=== PATIENT | female | born 2000 | race Caucasian/White ===

== ENCOUNTER 2020-03-02 12:16 | Emergency (ER) | payer OTHER, MEDICAID, SELFPAY ==
[2020-03-02 12:29] VITALS: BP 141/92; PULSE 90; RESP 22; TEMP 36.8; O2SAT 97; BMI 28.0
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
[2020-03-02] MEDS: ALBUTEROL 2.5 MG/3 ML NEB (ADULT) INH (12:57)
[2020-03-02 13:00] VITALS: BP 126/86; PULSE 76; PULSE 77; RESP 18; RESP 24; O2SAT 97
--- NOTE | 2020-03-02 13:29 | RT ---
Pt instructed MDI use, spacer issued.
--- NOTE | 2020-03-02 13:46 | PC.NURSE ---
Pt reports feeling better after albuterol treatment. States feels able to get more air into lower lungs. Continues to have a wheeze bilateral both inspiratory and expiratory.
[2020-03-02] MEDS: predniSONE 20 MG TABLET 40 MG PO (14:09)
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
== END 2020-03-02 14:37 | disposition home or self-care (01) ==
PROVIDERS: Emergency Provider Nurse Practitioner Family; PCP Physician Assistant
DX: R06.2 Wheezing (principal); T75.89XA Other specified effects of external causes, initial encounter
CPT/HCPCS: 71046; 94150; 94640; 99283; 99284; J7613

== ENCOUNTER 2020-06-30 20:56 | Emergency (ER) | payer OTHER, MEDICAID, SELFPAY ==
[2020-06-30] VITALS (7 sets, daily range): BP systolic 108–140; BP diastolic 75–88; PULSE 85–98; RESP 18–23; TEMP 37.1; O2SAT 95–96; BMI 28.0
--- NOTE | 2020-06-30 21:07 | DI.RAD.S_ITS ---
PROCEDURE: XR CHEST 2V INDICATIONS: shortness of breath with wheezing TECHNIQUE: 2 views of the chest were acquired. COMPARISON: [facility], CR, XR CHEST 1 VIEW, 01/27/2018, 0:46. [facility], CR, XR CHEST 2V, 03/02/2020, 12:35. FINDINGS: Surgical changes and devices: None. Lungs and pleura: There are indistinct airspace opacities within the left lung base. No pleural effusions or pneumothorax. Mediastinum: Mediastinal contours are normal. Heart size is normal. Bones and chest wall: No suspicious bony abnormalities. Soft tissues appear unremarkable. IMPRESSION: 1. Indistinct airspace opacities in the left lung base may represent pneumonia or atelectasis. Dictated by: Broderick Brandt M.D. on 06/30/2020 at 22:08 Approved by: Broderick Brandt M.D. on 06/30/2020 at 22:11
[2020-06-30] MEDS: ALBUTEROL HFA 200 PUFF/18 GM INH (COVID POS/VENT PTS) INH (21:16)
[2020-06-30 21:19] LABS: COVID19 -Nasal RAPID Negative (Negative)
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
[2020-07-01 00:16] VITALS: PULSE 69; RESP 20; O2SAT 96
[2020-07-01] MEDS: ALBUTEROL 2.5 MG/3 ML NEB (ADULT) INH (00:16)
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
[2020-07-01 00:43] VITALS: PULSE 95; O2SAT 98
[2020-07-01 00:45] VITALS: BP 120/57; PULSE 86; O2SAT 96
[2020-07-01] MEDS: ALBUTEROL HFA PREPACK 1 BOX MISC (00:49)
== END 2020-07-01 00:52 | disposition home or self-care (01) ==
PROVIDERS: Emergency Provider Emergency Medicine; PCP Physician Assistant
DX: J45.21 Mild intermittent asthma with (acute) exacerbation (principal)
CPT/HCPCS: 71046; 87635; 94640; 99283; J7613

== ENCOUNTER 2021-04-19 22:31 | Emergency (ER) | payer OTHER, MEDICAID, SELFPAY ==
[2021-04-19 22:38] VITALS: BP 156/101; PULSE 93; RESP 18; TEMP 36.6; O2SAT 99; BMI 30.2
[2021-04-19 23:41] VITALS: BP 132/80; PULSE 61; RESP 20; TEMP 36.7; O2SAT 94
[2021-04-20 00:08] LABS: COVID19 -Nasal RAPID Negative (Negative)
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
[2021-04-20 00:30] VITALS: PULSE 71; RESP 19; O2SAT 96
[2021-04-20] MEDS: ALBUTEROL/IPRATROPIUM 3 ML AMPUL INH (00:30)
[2021-04-20 00:41] VITALS: PULSE 59; RESP 18; O2SAT 98
[2021-04-20] MEDS: ALBUTEROL HFA MDI 60 PUFF/8 GM INHALER INH (00:41)
[2021-04-20 00:47] VITALS: PULSE 78; RESP 20; O2SAT 95
== END 2021-04-20 00:43 | disposition home or self-care (01) ==
PROVIDERS: Emergency Provider Emergency Medicine; PCP Physician Assistant
DX: J45.901 Unspecified asthma with (acute) exacerbation (principal); Z20.822 Contact with and (suspected) exposure to COVID-19
CPT/HCPCS: 87635; 94640; 99283; C9803; A9270

== ENCOUNTER 2021-05-10 21:16 | Emergency (ER) | payer OTHER, MEDICAID, SELFPAY ==
[2021-05-10 21:23] VITALS: BP 154/85; PULSE 67; RESP 15; TEMP 36.8; O2SAT 97; BMI 29.5
[2021-05-10 21:51] LABS: COVID19 -Nasal RAPID Negative (Negative)
[2021-05-11 02:10] VITALS: PULSE 68; RESP 21
[2021-05-11] MEDS: ALBUTEROL 2.5 MG/3 ML NEB (ADULT) 20 MG INH (02:10)
[2021-05-11] MEDS: IPRATROPIUM 0.5 MG/2.5 ML NEB 1.5 MG INH (02:10)
--- NOTE | 2021-05-11 02:16 | ED_ITS ---
HPI - Asthma General Chief Complaint: Asthma Stated Complaint: ASTHMA ATTACK Time Seen by Provider: 05/11/21 02:07 Source: patient Mode of arrival: Ambulatory Limitations: no limitations History of Present Illness HPI Narrative: 20-year-old woman with a history of moderate persistent asthma supposed to be on 2 puffs of 80 mcg beclomethasone and albuterol. She has been out of the steroid inhaler for about a month and today used her last puff of albuterol. She was unable to get in to see her primary care physician to refill inhalers until mid March. She states that she was fine until 11:00 a.m. this morning. She isn't sure what actually triggered the acute attack but was having increasing wheezing to the point that she needed to come to the emergency department. Her COVID screen initially is negative. She is responding nicely to inhaled albuterol at this time. She reports no recent fevers she has had a slight cough that she relates to her asthma but it has been nonproductive. She has not felt sick per se. She is having no chest pain she describes shortness of breath as her wheezing has gotten worse today but nothing prior to that. No vomiting, diarrhea, abdominal pain, dysuria, headaches. Related Data Previous Rx's Medication Instructions Recorded albuterol sulfate 90 mcg/actuation 2 puff INHALATION Q4-6H PRN #18 03/02/20 aerosol inhaler gram albuterol sulfate 90 mcg/actuation 2 inhalation INHALATION QID PRN 04/20/21 aerosol inhaler (Ventolin HFA) #6.7 gram albuterol sulfate 90 mcg/actuation 2 puff INHALATION Q6H PRN #8.5 g 05/11/21 aerosol inhaler beclomethasone dipropionate 80 1 inh INHALATION BID #10.6 g 05/11/21 mcg/actuation HFA breath activated aerosol (Qvar RediHaler) prednisone 20 mg tablet 20 mg PO DAILY #5 tab 05/11/21 Allergies Allergy/AdvReac Type Severity Reaction Status Date / Time No Known Drug Allergies Allergy Verified 05/10/21 21:25 Review of Systems Review of Systems Narrative: Remainder of complete review of systems is otherwise unremarkable except for that included in the HPI. Patient History Medical History Reactive airway disease Surgical History No significant past surgical history Social History Smoking Status: Former smoker Smoking Status: Former smoker tobacco type: cigarettes alcohol intake frequency: 0-2 drinks per day Substance Use Type: marijuana Exam Narrative Exam Narrative: General: Healthy appearing, in mild respiratory distress. Able to give a complete and coherent history. Well-nourished well-developed HEENT: Moist mucous membranes, normal sclera with reactive pupils, Neck: No cervical adenopathy, supple Respiratory: Lungs with diffuse wheeze in all lung joseph. Diminished overall air movement, speaking in full sentences, no accessory muscle use Cardiac: Regular rate and rhythm no murmurs no bruits Abdomen: Soft, nontender, good bowel tones, no flank pain Skin: Warm and dry, no rashes Neurologic: Grossly neurologically intact with no obvious asymmetries or abnormalities Extremities: No trauma, well perfused Psych: Cooperative, appropriate insight and affect Initial Vital Signs Initial Vital Signs: Vital Signs Temperature 98.2 F 05/10/21 21:23 Pulse Rate 67 05/10/21 21:23 Respiratory Rate 15 05/10/21 21:23 Blood Pressure 154/85 H 05/10/21 21:23 Pulse Oximetry 97 05/10/21 21:23 Course Orders Ordered: ED Orders 05/10/21 21:29 COVID19 -Nasal swab/Pre-Proc Stat 05/11/21 01:45 RT Consult Eval and Treat NOW Discontinued Medications Albuterol (Albuterol 2.5 Mg/3 Ml Neb (Adult)) 20 mg INH NOW ONE Stop: 05/11/21 01:52 Last Admin: 05/11/21 02:10 Dose: 20 mg Documented by: JULEE Ipratropium [place] (Ipratropium 0.5 Mg/2.5 Ml Neb) 1.5 mg INH NOW ONE Stop: 05/11/21 01:53 Last Admin: 05/11/21 02:10 Dose: 1.5 mg Documented by: JULEE Prednisone (Prednisone 20 Mg Tablet) 60 mg PO NOW ONE Stop: 05/11/21 02:22 Last Admin: 05/11/21 03:27 Dose: 60 mg Documented by: CRISTIANO Vital Signs Vital signs: Vital Signs - 8 hr 05/10/21 21:23 05/11/21 02:10 Temperature 98.2 F Pulse Rate 67 68 Respiratory Rate 15 21 Blood Pressure 154/85 H Pulse Oximetry 97 MDM - Asthma Lab Data Labs: Lab Results 05/10/21 Range/Units 21:29 SARS-CoV-2 (PCR) Negative (Negative) MDM Narrative Medical decision making narrative: 20-year-old woman with acute onset asthma exacerbation starting at 11:00 a.m. this morning. She has been out of her QVAR for approximately 3 weeks and use her last dose of albuterol MDI inhaler this morning. Symptoms have continued to worsen throughout the day. She responded nicely to 20 mg of nebulized albuterol along with Atrovent. Her COVID screen was negative. Poor movement and significant wheeze initially and significant improvement post inhaler. Her usual QVAR and albuterol are refilled and she is given 5 days of prednisone, 20 mg daily. She is speaking in full sentences quite comfortable at this point. She is safe for home discharge Discharge Plan Departure Patient Disposition: Home Clinical Impression: Asthma with acute exacerbation Qualifiers: Asthma severity: moderate Asthma persistence: persistent Qualified Code(s): J45.41 - Moderate persistent asthma with (acute) exacerbation Instructions: DI for Asthma -- Adult Activity Restrictions/Additional Instructions: Thank you for coming in today I am sorry that you ran out of medications. Please restart the QVAR 1 puff in the morning 1 puff at night and continue using the albuterol as needed. I have also given you a prescription for 5 additional days of 20 mg of prednisone to prevent any significant recurrences as the large doses of albuterol from the emergency department are wearing off. [facility] If you have worsening symptoms or issues, please feel free to return to the ER Prescriptions: New Qvar RediHaler 80 mcg/actuation HFA aerosol breath activated 1 inh inhalation BID Qty: 10.6 RF: 1 albuterol sulfate 90 mcg/actuation HFA aerosol inhaler 2 puff inhalation Q6H PRN (Reason: shortness of breath or wheezing) Qty: 8.5 RF: 2 prednisone 20 mg tablet 20 mg PO DAILY Qty: 5 RF: 0 No Action albuterol sulfate 90 mcg/actuation HFA aerosol inhaler 2 puff INHALATION Q4-6H PRN (Reason: shortness of breath or wheezing) Qty: 18 RF: 0 albuterol sulfate [Ventolin HFA] 90 mcg/actuation HFA aerosol inhaler 2 inhalation INHALATION QID PRN (Reason: shortness of breath or wheezing) Qty: 6.7 RF: 0 Referrals: Jennifer Liz PA-C [Primary Care Provider] -
[2021-05-11] MEDS: predniSONE 20 MG TABLET 60 MG PO (03:27)
[2021-05-11 04:50] VITALS: BP 131/79; PULSE 83; RESP 20; O2SAT 97
== END 2021-05-11 04:42 | disposition home or self-care (01) ==
PROVIDERS: Emergency Provider Emergency Medicine; PCP Physician Assistant
DX: J45.41 Moderate persistent asthma with (acute) exacerbation (principal); Z20.822 Contact with and (suspected) exposure to COVID-19
CPT/HCPCS: 87635; 99283; C9803; J7613

== ENCOUNTER 2022-07-16 16:29 | Emergency (ER) | payer OTHER, MEDICAID, SELFPAY ==
[2022-07-16] VITALS (8 sets, daily range): BP systolic 131–158; BP diastolic 75–92; PULSE 64–81; RESP 16–20; TEMP 36.9; O2SAT 98; BMI 31.2
[2022-07-16] MEDS: ALBUTEROL HFA PREPACK 1 BOX MISC (17:44)
[2022-07-16] MEDS: predniSONE 20 MG TABLET 40 MG PO (18:51)
[2022-07-16] MEDS: diphenhydrAMINE 25 MG TABLET PO (18:52)
[2022-07-16] MEDS: ALBUTEROL 2.5 MG/3 ML NEB (ADULT) INH (19:02)
--- NOTE | 2022-07-16 19:05 | ED.SOB ---
HPI - SOB/Dyspnea <Jackie Mcgill, [facility] - Last Filed: 07/16/22 19:39> General Chief Complaint: Shortness of Breath/Dyspnea Stated Complaint: Asthma Time Seen by Provider: 07/16/22 17:41 Source: patient Mode of arrival: Family Vehicle Limitations: no limitations History of Present Illness HPI Narrative: This is a 22-year-old female presents to the emergency department after she had a smell of strong perfume which triggered her asthma and she has been coughing with increased nasal congestion since, she states she has history of allergic rhinitis as well. She ran out of her albuterol inhaler and came in for evaluation. She states that she is short of breath, tight, does not think she is wheezing but feels that her chest is tight. Nurse initiated orders had Respiratory come and do an evaluation, she was given an albuterol inhaler and has used it 6 times since she arrived. She states that she feels better but still feels tight. She takes montelukast at baseline, encouraged her to follow-up with her primary care provider and refill of her medications. She states that she sees a new provider at the [facility]. She has had asthma since a child, states her baseline only requires albuterol inhaler once a month, her 1st trigger was horses and animal dander, she states that she has multiple triggers now. Related Data Previous Rx's Medication Instructions Recorded albuterol sulfate 90 mcg/actuation 2 puff inhalation Q4-6H PRN 03/02/20 aerosol inhaler shortness of breath or wheezing #18 grams albuterol sulfate 90 mcg/actuation 2 inhalation inhalation QID PRN 04/20/21 aerosol inhaler (Ventolin HFA) shortness of breath or wheezing #6.7 grams albuterol sulfate 90 mcg/actuation 2 puff inhalation Q6H PRN 05/11/21 aerosol inhaler shortness of breath or wheezing #8.5 grams beclomethasone dipropionate 80 1 inh inhalation BID #10.6 grams 05/11/21 mcg/actuation HFA breath activated aerosol (Qvar RediHaler) prednisone 20 mg tablet 20 mg PO DAILY #5 tabs 05/11/21 albuterol sulfate 90 mcg/actuation 1 inh inhalation Q6H PRN shortness 11/19/22 aerosol inhaler of breath or wheezing #8.5 grams fluticasone propionate 50 1 spray intranasal BID allergic 07/16/22 mcg/actuation nasal rhinitis #16 grams spray,suspension Allergies Allergy/AdvReac Type Severity Reaction Status Date / Time No Known Drug Allergies Allergy Verified 05/10/21 21:25 Review of Systems <LEVI Ricks - Last Filed: 07/16/22 19:39> Review of Systems Narrative: Review of systems is negative for acute abnormalities unless otherwise noted in HPI Patient History <LEVI Ricks - Last Filed: 07/16/22 19:39> Medical History Reactive airway disease Surgical History No significant past surgical history Social History Smoking Status: Former smoker Smoking Status: Former smoker tobacco type: cigarettes alcohol intake frequency: 0-2 drinks per day Substance Use Type: marijuana Exam <LEVI Ricks - Last Filed: 07/16/22 19:39> Narrative Exam Narrative: Reviewed vitals signs and nursing notes. General: cooperative, comfortable, in no acute distress, well groomed, afebrile HEENT: symmetrical facial expressions, moist mucous membranes, nasal congestion, patient is breathing through her mouth Cardiovascular: regular rate and rhythm, no peripheral edema, warm extremities Respiratory: normal effort, able to speak in complete sentences, without wheezing, stridor, retractions or tachypnea but she does have decreased air movement and sounds tight. Patient has had 6 albuterol puffs from her MDI, will give neb and reassess After patient received the nebulizer, she was moving more air, states that she feels much better and was coughing less. Patient is okay with being discharged home Skin: brisk capillary refill, without pallor or erythema Neuro: normal speech and cognition, A&O x3, ambulatory, clear speech Psych: mental status is grossly normal, congruent mood, normal affect, pleasant and cooperative Initial Vital Signs Initial Vital Signs: Vital Signs Temperature 98.5 F 07/16/22 16:48 Pulse Rate 81 07/16/22 16:48 Respiratory Rate 20 07/16/22 16:48 Blood Pressure 158/92 H 07/16/22 16:48 Pulse Oximetry 98 07/16/22 16:48 Oxygen Delivery Method 07/16/22 16:48 <Karime Soler DO - Last Filed: 07/29/22 11:23> Initial Vital Signs Initial Vital Signs: Vital Signs Temperature 98.5 F 07/16/22 16:48 Pulse Rate 81 07/16/22 16:48 Respiratory Rate 20 07/16/22 16:48 Blood Pressure 158/92 H 07/16/22 16:48 Pulse Oximetry 98 07/16/22 16:48 Oxygen Delivery Method 07/16/22 16:48 Course <LEVI Ricks - Last Filed: 07/16/22 19:39> Orders Ordered: Discontinued Medications Albuterol (Albuterol Hfa Prepack) 1 box MISC SEEINSTR ONE Stop: 07/16/22 17:42 Last Admin: 07/16/22 17:44 Dose: 1 box Documented By: PATRICK Albuterol (Albuterol 2.5 Mg/3 Ml Neb (Adult)) 2.5 mg INH NOW ONE Stop: 07/16/22 18:45 Last Admin: 07/16/22 19:02 Dose: 2.5 mg Documented By: PATRICK Diphenhydramine HCl (Diphenhydramine 25 Mg Tablet) 25 mg PO NOW ONE Stop: 07/16/22 18:47 Last Admin: 07/16/22 18:52 Dose: 25 mg Documented By: RUI Prednisone (Prednisone 20 Mg Tablet) 40 mg PO NOW ONE Stop: 07/16/22 18:45 Last Admin: 07/16/22 18:51 Dose: 40 mg Documented By: RUI Consultations Consultation #1: Respiratory therapy completed assessment, please see their note, she sounded tight for Respiratory therapy and was without wheezes as well. They gave her an inhaler and she is used it 6 times, I called for a nebulizer, will assess this afterwards Vital Signs Vital signs: Vital Signs - 8 hr 07/16/22 16:48 07/16/22 17:44 07/16/22 19:02 Temperature 98.5 F Pulse Rate 81 69 64 Respiratory Rate 20 16 16 Blood Pressure 158/92 H Pulse Oximetry 98 98 98 Oxygen Delivery Method Room Air Room Air Room Air 07/16/22 17:35 07/16/22 18:00 07/16/22 18:30 Temperature Pulse Rate 79 79 67 Respiratory Rate Blood Pressure Pulse Oximetry 98 98 98 Oxygen Delivery Method 07/16/22 19:00 07/16/22 19:11 Temperature Pulse Rate 70 Respiratory Rate Blood Pressure 131/75 Pulse Oximetry 98 Oxygen Delivery Method <Karime Soler DO - Last Filed: 07/29/22 11:23> Orders Ordered: Discontinued Medications Albuterol (Albuterol Hfa Prepack) 1 box MISC SEEINSTR ONE Stop: 07/16/22 17:42 Last Admin: 07/16/22 17:44 Dose: 1 box Documented By: PATRICK Albuterol (Albuterol 2.5 Mg/3 Ml Neb (Adult)) 2.5 mg INH NOW ONE Stop: 07/16/22 18:45 Last Admin: 07/16/22 19:02 Dose: 2.5 mg Documented By: PATRICK Diphenhydramine HCl (Diphenhydramine 25 Mg Tablet) 25 mg PO NOW ONE Stop: 07/16/22 18:47 Last Admin: 07/16/22 18:52 Dose: 25 mg Documented By: RUI Prednisone (Prednisone 20 Mg Tablet) 40 mg PO NOW ONE Stop: 07/16/22 18:45 Last Admin: 07/16/22 18:51 Dose: 40 mg Documented By: RUI Vital Signs Vital signs: Vital Signs - 8 hr 07/16/22 16:48 07/16/22 17:44 07/16/22 19:02 Temperature 98.5 F Pulse Rate 81 69 64 Respiratory Rate 20 16 16 Blood Pressure 158/92 H Pulse Oximetry 98 98 98 Oxygen Delivery Method Room Air Room Air Room Air 07/16/22 17:35 07/16/22 18:00 07/16/22 18:30 Temperature Pulse Rate 79 79 67 Respiratory Rate Blood Pressure Pulse Oximetry 98 98 98 Oxygen Delivery Method 07/16/22 19:00 07/16/22 19:11 Temperature Pulse Rate 70 Respiratory Rate Blood Pressure 131/75 Pulse Oximetry 98 Oxygen Delivery Method MDM - SOB/Dyspnea <LEVI Ricks - Last Filed: 07/16/22 19:39> MDM Narrative Medical decision making narrative: This is a 22-year-old female with history of asthma, allergic rhinitis, she was exposed to a strong perfume today which started a coughing exacerbation, states that she has use the rest of her albuterol inhaler at home, came in for help with an asthma exacerbation. Nursing initiated orders were put in, she received a prepack albuterol MDI and had 6 puffs, she was still height, moving air without wheezes but not very much. She was given 1 albuterol nebulizer, 40 mg of prednisone, and she has taken her other medications. She was also given 25 mg of Benadryl for her allergic rhinitis symptoms, stated that she felt much better and is able to take deeper breaths now. The pharmacies were closed, she was sent home with an MDI, and she was given strict return precautions for any worsening to come back to the emergency department. Recommend magnesium, her typical medications, states that she takes montelukast but I see that she has QVAR ordered on her Oct. She has a new primary care provider there over the [facility], she understands to follow-up with them regarding her asthma exacerbations. She typically only needs her albuterol inhaler 1 time per month. Patient is appropriate and amenable to discharge home. Vital signs are stable on repeat examination is unremarkable. Patient has been informed of results. Patient has been given strict return to ER precautions for any new or worsening symptoms. Patient understands to follow up closely with outpatient providers as instructed. Patient understands plan and agrees to discharge home. All questions and concerns answered at this time. Discharge Plan Departure Patient Disposition: Home Clinical Impression: Asthma exacerbation Qualifiers: Asthma severity: moderate Asthma persistence: unspecified Qualified Code(s): J45.901 - Unspecified asthma with (acute) exacerbation Allergic rhinitis Qualifiers: Allergic rhinitis trigger: unspecified Allergic rhinitis seasonality: unspecified Qualified Code(s): J30.9 - Allergic rhinitis, unspecified Instructions: Asthma -- Adult, Allergic Rhinitis Activity Restrictions/Additional Instructions: *You have been diagnosed with an asthma exacerbation, allergic rhinitis with fragments as your trigger today. Please continue with your montelukast, you can use your albuterol inhaler as needed, bulk picker your refill of it tomorrow at the pharmacy, try to avoid triggers, dry air, cold air, and stay hydrated. Use ibuprofen and or Tylenol as needed for your symptoms. You may take Benadryl at night to help decrease some congestion if you have it, please follow-up with your regular doctor if you have worsening triggers to assess your asthma regimen. I hope that you feel better soon, thank you for coming in. It can be helpful to take magnesium oxide 400 mg at night to relax smooth muscle as well. Decrease your stimuli to triggers, please come back if you get worse, hopefully you get better overnight and nebulizer was helpful. I wish you well, thanks for coming in. *What to do: *Please continue to take your regular medications as directed. [x ] New medication prescriptions sent to your pharmacy: [ [facility]] [ ] New medication written as a paper prescription [ ] No new medications given *Please follow up with your primary care provider in 2-3 days, call for an appointment. Let them know you were seen in the Emergency Department and that we asked that you be seen for follow-up. We will electronically transmit a record of today's note if your PCP is in our system *If you do not have a primary care provider please contact [phone] to establish care with one of [facility] primary care providers. *Return to Emergency Department if you should have any new, worsening, or concerning symptoms, such as [fever greater than 101F, chills, worsening pain, persistent vomiting or other bothersome symptoms]. Prescriptions: New albuterol sulfate 90 mcg/actuation HFA aerosol inhaler 1 inh inhalation Q6H PRN (Reason: shortness of breath or wheezing) Qty: 8.5 0RF fluticasone propionate 50 mcg/actuation spray,suspension 1 spray intranasal BID Qty: 16 0RF Rx Instructions: administer into each nostril No Action albuterol sulfate 90 mcg/actuation HFA aerosol inhaler 2 puff INHALATION Q4-6H PRN (Reason: shortness of breath or wheezing) Qty: 18 0RF albuterol sulfate [Ventolin HFA] 90 mcg/actuation HFA aerosol inhaler 2 inhalation INHALATION QID PRN (Reason: shortness of breath or wheezing) Qty: 6.7 0RF Qvar RediHaler 80 mcg/actuation HFA aerosol breath activated 1 inh inhalation BID Qty: 10.6 1RF albuterol sulfate 90 mcg/actuation HFA aerosol inhaler 2 puff inhalation Q6H PRN (Reason: shortness of breath or wheezing) Qty: 8.5 2RF prednisone 20 mg tablet 20 mg PO DAILY Qty: 5 0RF Referrals: Jennifer Liz PA-C [Primary Care Provider] - Visit Report Forms: Patient Portal/API <Karime Soler DO - Last Filed: 07/29/22 11:23> Cosign ED Attending Michelle Attestation: I was immediately available in the department for consultation. Documentation has been reviewed.
== END 2022-07-16 19:14 | disposition home or self-care (01) ==
PROVIDERS: Emergency Provider Nurse Practitioner Critical Care Medicine; PCP Physician Assistant
DX: J45.901 Unspecified asthma with (acute) exacerbation (principal); J30.9 Allergic rhinitis, unspecified
CPT/HCPCS: 94640; 99283; J7613